=== PATIENT | male | born 1980 | race Caucasian/White ===

== ENCOUNTER 2024-12-20 14:07 | Emergency (ER) | payer MEDICAID ==
[~2024-12-20] VITALS: Ht 170.1 cm; Wt 93.0 kg
[2024-12-20 14:19] VITALS: BP 153/82
[2024-12-20 15:21] LABS: BUN 21.0 mg/dl (9-23)
[2024-12-20] MEDS ORDERED: INSULIN REGULAR, HUMAN 1 UNIT/0.01 ML SC ONE (15:30)
[2024-12-20] MEDS ORDERED: SODIUM CHLORIDE 0.9% 1,000 ML IV ONE (16:00)
[2024-12-20 17:09] LABS: MEAN CELL VOLUME 83.2 fl (80.0-94.0); MEAN CORPUSCULAR HGB 29.1 pg (27.0-31.0); MEAN PLATELET VOLUME 12.2 fl (9.6-12.3); NUCLEATED RED BLOOD CELL 0.0 % (0.0-0.0); NUCLEATED RED BLOOD CELL 0.0 10*3/uL (0.0-0.0); RED CELL DISTRI WIDTH 13.3 % (0-14.5)
[2024-12-20 17:41] LABS: MANUAL DIFF REFLEX YES; PLATELET COUNT AUTOMATED 31 10*3/uL (130-400)
[2024-12-20 17:50] LABS: BASOPHILS 1 % (0-1); PLATELET SUFFICIENCY LOW (NORMAL)
[2024-12-20] MEDS ORDERED: LIPITOR20 MG PO (18:07)
[2024-12-20] MEDS ORDERED: CITALOPRAM20 MG PO (18:07)
[2024-12-20] MEDS ORDERED: ATARAX,VISTARIL50 MG PO (18:07)
[2024-12-20] MEDS ORDERED: ZANAFLEX4 MG PO (18:07)
[2024-12-20] MEDS ORDERED: METFORMIN HCL750 M1 PO (18:07)
[2024-12-20] MEDS ORDERED: LISINOPRIL10 M1 PO (18:07)
[2024-12-20] MEDS ORDERED: LANTUS100 UNIT/1 SC (18:07)
[2024-12-20] MEDS ORDERED: CLINDAMYCIN HC300 MG PO (18:07)
== END 2024-12-20 18:23 | disposition home or self-care (01) ==
LOC: ED 14:07
PROVIDERS: Nurse Practitioner Family
DX: S46.911A Strain of unspecified muscle, fascia and tendon at shoulder and upper arm level, right arm, initial encounter (principal); L02.511 Cutaneous abscess of right hand; D69.6 Thrombocytopenia, unspecified; F41.9 Anxiety disorder, unspecified; E78.5 Hyperlipidemia, unspecified; F32.A Depression, unspecified; E11.9 Type 2 diabetes mellitus without complications; I10 Essential (primary) hypertension; K21.9 Gastro-esophageal reflux disease without esophagitis; Z88.0 Allergy status to penicillin; Z88.2 Allergy status to sulfonamides; X50.1XXA Overexertion from prolonged static or awkward postures, initial encounter; Y93.89 Activity, other specified; Y92.89 Other specified places as the place of occurrence of the external cause; Y99.8 Other external cause status

== ENCOUNTER 2024-12-21 20:11 | Emergency (ER) | payer MEDICAID ==
[~2024-12-21] VITALS: Ht 172.7 cm; Wt 91.2 kg
[~2024-12-21 20:11] MED LIST: ATARAX,VISTARIL50 MG PO; CITALOPRAM20 MG PO; CLINDAMYCIN HC300 MG PO; LANTUS100 UNIT/1 SC; LIPITOR20 MG PO; LISINOPRIL10 M1 PO; METFORMIN HCL750 M1 PO; ZANAFLEX4 MG PO
[2024-12-21 20:18] VITALS: BP 164/91
[2024-12-21] MEDS ORDERED: Lidocaine Hydrochloride 2% 10 ML AMP SC ONE (20:25)
== END 2024-12-21 21:42 | disposition home or self-care (01) ==
LOC: ED 20:11
DX: L03.011 Cellulitis of right finger (principal); Z88.2 Allergy status to sulfonamides; Z88.0 Allergy status to penicillin; Z79.899 Other long term (current) drug therapy; Z79.84 Long term (current) use of oral hypoglycemic drugs

== ENCOUNTER → 2024-12-28 | Outpatient (CLI) | payer MEDICAID | END | disposition home or self-care (01) | LOC: RESCLI 13:51 | PROVIDERS: ATTEND Internal Medicine | DX: L03.019 Cellulitis of unspecified finger (principal); L03.90 Cellulitis, unspecified; E78.5 Hyperlipidemia, unspecified; E11.9 Type 2 diabetes mellitus without complications; I10 Essential (primary) hypertension; F32.9 Major depressive disorder, single episode, unspecified; Z79.899 Other long term (current) drug therapy; Z88.0 Allergy status to penicillin; Z98.890 Other specified postprocedural states ==

== ENCOUNTER 2025-02-25 02:14 | Emergency (ER) | payer MEDICAID ==
[~2025-02-25] VITALS: Ht 172.7 cm; Wt 90.7 kg
[2025-02-25] MEDS ORDERED: METHOCARBAMOL 500 MG TAB PO ONE (03:40)
[2025-02-25] MEDS ORDERED: METHOCARBAMOL750 M1 PO (03:45)
[2025-02-25] MEDS ORDERED: PREDNISONE20 M1 PO (03:45)
[2025-02-25 04:07] VITALS: BP 154/89
[2025-02-25] MEDS ORDERED: Water, Sterile 10 ML VIAL ONE (04:13)
== END 2025-02-25 03:54 | disposition home or self-care (01) ==
LOC: ED 02:14
DX: S00.93XA Contusion of unspecified part of head, initial encounter (principal); S16.1XXA Strain of muscle, fascia and tendon at neck level, initial encounter; M25.562 Pain in left knee; E11.9 Type 2 diabetes mellitus without complications; I10 Essential (primary) hypertension; E78.00 Pure hypercholesterolemia, unspecified; Z88.0 Allergy status to penicillin; Z88.2 Allergy status to sulfonamides; W22.8XXA Striking against or struck by other objects, initial encounter; Y93.89 Activity, other specified; Y92.89 Other specified places as the place of occurrence of the external cause; Y99.8 Other external cause status